=== PATIENT | female | born 1960 | race Hispanic/Latino ===

== ENCOUNTER 2024-07-16 14:25 | Emergency (ER) | payer OTHER ==
[~2024-07-16] VITALS: Ht 154.9 cm; Wt 85.7 kg
[2024-07-16] MEDS: CYCLOBENZAPRINE HCL 10 MG TABLET PO ONE (15:43)
[2024-07-16] MEDS: HYDROcodone/APAP 5/325 1 TAB TABLET PO ONE (15:43)
[2024-07-16] MEDS ORDERED: IBUP-2077 PO (16:22)
[2024-07-16] MEDS ORDERED: CYCL-309 PO (16:22)
[2024-07-16 16:41] VITALS: BP 131/79; PULSE 74; RESP 20; TEMP 98.2; O2SAT 99
== END 2024-07-16 16:43 | disposition home or self-care (01) ==
LOC: EDH 14:25
DX: S16.1XXA Strain of muscle, fascia and tendon at neck level, initial encounter (principal); S30.0XXA Contusion of lower back and pelvis, initial encounter; S40.012A Contusion of left shoulder, initial encounter; E11.9 Type 2 diabetes mellitus without complications; I10 Essential (primary) hypertension; Y04.8XXA Assault by other bodily force, initial encounter; Y93.89 Activity, other specified; Y92.89 Other specified places as the place of occurrence of the external cause; Y99.8 Other external cause status
CPT/HCPCS: 72100; 72125; 73030